=== PATIENT | female | born 1995 | race Caucasian/White ===

== ENCOUNTER 2017-03-26 20:05 | Inpatient (IN) ==
[2017-03-26] MEDS ORDERED: KEFZOL 1 GM/D5W 1 GM/50 ML IVPB IV PRN (20:08)
[2017-03-26] MEDS ORDERED: PEPCID PO PRN (20:08)
[2017-03-26] MEDS ORDERED: ZOFRAN IV PRN (20:08)
[2017-03-26] MEDS ORDERED: BRETHINE SUBQ PRN (20:08)
[2017-03-26] MEDS ORDERED: PEPCID IV PRN (20:08)
[2017-03-26] MEDS ORDERED: AMBIEN PO PRN (20:08)
[2017-03-26] MEDS ORDERED: PITOCIN 30 UNITS/LR 30 UNITS/500 ML IV.SOLN IV SCH (20:08)
[2017-03-26] MEDS ORDERED: TYLENOL PO PRN (20:08)
[2017-03-26] MEDS ORDERED: STADOL IV PRN ×2 (20:08)
[2017-03-26] MEDS: LR 1,000 ML IV ONE (21:00)
[2017-03-26 21:35] LABS: MANUAL DIFF NEEDED? NO
[2017-03-26 21:37] LABS: COLOR YELLOW; URINE SOURCE VOIDED
[2017-03-26 21:38] LABS: BILIRUBIN URINE NEGATIVE (NEGATIVE); GLUCOSE URINE NEGATIVE (NEGATIVE)
[2017-03-26 21:40] LABS: BLOOD URINE 2+ (NEGATIVE); CLARITY CLEAR (CLEAR); LEUKOCYTES URINE 2+ (NEGATIVE); NITRITE URINE NEGATIVE (NEGATIVE); PH URINE 6.5; PROTEIN URINE NEGATIVE (NEGATIVE); UROBILINOGEN URINE NORMAL
[2017-03-26 21:44] LABS: UR AMPHETAMINES QUAL NONE DETECTED (NONE DETECT); UR BARBITUATES QUAL NONE DETECTED (NONE DETECT); UR BENZODIAZEPIN QUAL NONE DETECTED (NONE DETECT); UR CANNABINOIDS QUAL NONE DETECTED (NONE DETECT); UR COCAINE QUAL NONE DETECTED (NONE DETECT); UR MDMA QUAL NONE DETECTED (NONE DETECT); UR METHADONE QUAL NONE DETECTED (NONE DETECT); UR METHAMPHETAMINE QUAL NONE DETECTED (NONE DETECT); UR OPIATES QUAL NONE DETECTED (NONE DETECT); UR OXYCODONE QUAL NONE DETECTED (NONE DETECT); UR PCP QUAL NONE DETECTED (NONE DETECT); UR TCA QUAL NONE DETECTED (NONE DETECT)
[2017-03-26 22:06] LABS: BASO% 0.2 % (0.0-0.8); EOS# 0.07 X1000 (0.0-0.7); EOS% 0.5 % (0.0-10.0); HEMATOCRIT 38.2 % (37.0-47.0); HEMOGLOBIN 13.6 g/dL (12.0-16.0); IMM GRAN% 0.7 % (0.0-0.5); LYMPH# 2.31 X1000 (1.2-3.4); MCH 31.6 PG (27-31); MCHC 35.6 g/dL (33-37); MCV 88.6 FL (81-99); MONO# 0.97 X1000 (0.11-0.59); MONO% 6.7 % (1.7-9.3); MPV 10.8 FL (7.4-10.4); NEUT% 75.9 % (42.2-75.2); PLT 251 X1000 (130-400); RBC 4.31 XMIL (4.2-5.4)
[2017-03-26] MEDS ORDERED: CYTOTEC PO ONE (23:00)
[2017-03-27] MEDS: STADOL IV PRN ×2 (01:04→06:44)
[2017-03-27] MEDS ORDERED: CYTOTEC PO SCH (03:00)
[2017-03-27] MEDS: LR 1,000 ML IV ONE ×2 (06:44→08:04)
[2017-03-27] MEDS ORDERED: MINERAL OIL TOP ONE (07:41)
[2017-03-27] MEDS ORDERED: XYLOCAINE-MPF 1% INJ ONE (07:41)
[2017-03-27] MEDS ORDERED: FENTANYL-BUPIV-NS 2 MCG-0.1% 200 ML EPIDURAL PRN (07:46)
[2017-03-27] MEDS ORDERED: MARCAINE 0.25% PF INJ ONE (08:00)
[2017-03-27] MEDS ORDERED: LR 1,000 ML IV SCH (08:03)
[2017-03-27] MEDS ORDERED: PITOCIN 30 UNITS/LR 30 UNITS/500 ML IV.SOLN IV ONE (14:07)
[2017-03-27] MEDS ORDERED: HYDROXYZINE IM PRN (14:07)
[2017-03-27] MEDS ORDERED: MINERAL OIL PO PRN (14:07)
[2017-03-27] MEDS ORDERED: PERI MEDS (DERMOPLAST/NUPERCAINAL/TUCKS) MISC PRN (14:07)
[2017-03-27] MEDS ORDERED: BOOSTRIX VACCINE IM ONE (14:07)
[2017-03-27] MEDS ORDERED: XYLOCAINE-MPF 1% INJ PRN (14:07)
[2017-03-27] MEDS ORDERED: PITOCIN 20 UNITS/LR 20 UNITS/1,000 ML IV.SOLN IV SCH (14:07)
[2017-03-27] MEDS ORDERED: PITOCIN IM PRN (14:07)
[2017-03-27] MEDS ORDERED: AMBIEN PO PRN (14:07)
[2017-03-27] MEDS ORDERED: M-M-R II VACCINE SUBQ ONE (14:07)
[2017-03-27] MEDS ORDERED: CYTOTEC PO PRN (14:07)
[2017-03-27] MEDS ORDERED: BENADRYL PO PRN (14:07)
[2017-03-27] MEDS ORDERED: NORCO-5 PO PRN (14:07)
[2017-03-27] MEDS ORDERED: BENADRYL IV PRN (14:07)
[2017-03-27] MEDS ORDERED: NORCO-10 PO PRN (14:07)
[2017-03-27] MEDS ORDERED: HYDROXYZINE PO PRN (14:07)
[2017-03-27] MEDS ORDERED: FLUZONE QUAD 2017-2018 SYRINGE IM ONE (18:15)
[2017-03-27] MEDS: MOTRIN PO PRN (19:24)
[2017-03-27] MEDS: PERICOLACE PO SCH (19:24)
[2017-03-28 06:27] LABS: HEMATOCRIT 30.6 % (37.0-47.0); HEMOGLOBIN 10.5 g/dL (12.0-16.0); MCH 30.8 PG (27-31); MCHC 34.3 g/dL (33-37); MCV 89.7 FL (81-99); MPV 10.7 FL (7.4-10.4); RBC 3.41 XMIL (4.2-5.4)
[2017-03-28] MEDS: MOTRIN PO PRN ×2 (07:54→17:54)
[2017-03-28] MEDS: PERICOLACE PO SCH (21:02)
[2017-03-29 11:38] VITALS: BP 119/75
== END 2017-03-29 11:35 | disposition home or self-care (01) ==
LOC: P.LD 20:05 → P.WC 03-28 10:47
PROVIDERS: ADMIT Obstetrics & Gynecology; ATTEND Obstetrics & Gynecology